=== PATIENT | male | born 1980 | race Caucasian/White ===

== ENCOUNTER → 2022-01-20 | Outpatient (CLI) | payer BC ==
--- NOTE | 2022-01-20 20:35 | RAD ---
Study: XR KNEE 3 VIEWS_RT Indication: Knee pain. Comparison: None. Findings: Maintained femorotibial compartment joint space height. Minimal patellofemoral and medial femorotibia l compartment degenerative changes with tiny osteophyte formation. No displaced fracture or malalignm ent. Small appearing knee joint effusion. Impression: 1. No acute osseous abnormality. 2. 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 3. Small appearing knee joint effusion. Consider MRI if there is clinical concern for injury to the s oft tissue supporting structures of the knee. Electronically signed by: PATSY MONTANA MD (01/20/2022 8:33 PM) [facility]
== END ==
LOC: RAD 14:50
PROVIDERS: ATTEND Family Medicine
DX: M17.11 Unilateral primary osteoarthritis, right knee (principal); M25.761 Osteophyte, right knee
CPT/HCPCS: 73562